=== PATIENT | male | born 1950 | race Caucasian/White ===

== ENCOUNTER 2017-06-28 03:44 | Emergency (ER) | payer BC, MEDICARE ==
[~2017-06-28] VITALS: Ht 167.6 cm; Wt 76.5 kg
[2017-06-28 03:48] VITALS: Ht 167.6 cm; Wt 76.5 kg
[2017-06-28] MEDS ORDERED: SOD CHLORIDE 0.9% 1,000 ML IV STA (03:59)
[2017-06-28] MEDS ORDERED: ONDANSETRON 4 MG INJ IV STA (03:59)
[2017-06-28] MEDS ORDERED: morphine 4 MG/ML VIAL IV STA (03:59)
[2017-06-28 04:46] LABS: BASOPHILS % 0.3 % (0.0-2.0); EOSINOPHILS # 0.2 10^3/ul (0.0-0.5); HEMATOCRIT 44.1 % (42.0-52.0); LYMPHOCYTES # 1.8 10^3/ul (0.8-2.9); LYMPHOCYTES % 18.4 % (15.0-51.0); MEAN CORPUSCULAR HEMOGLOBIN 30.9 pg (29.0-33.0); MEAN CORPUSCULAR VOLUME 90.7 fl (82.0-101.0); MONOCYTE # 0.6 10^3/ul (0.3-0.9); MONOCYTES % 5.7 % (0.0-11.0); NEUTROPHIL # 7.2 10^3/ul (1.6-7.5); NEUTROPHILS % 73.3 % (39.0-77.0); PLATELET COUNT 259 10^3/UL (140-415); RED BLOOD COUNT 4.86 10^6/ul (4.70-6.10); RED CELL DISTRIBUTION WIDTH 13.2 % (11.5-14.5); WHITE BLOOD COUNT 9.8 10^3/ul (4.8-10.8)
[2017-06-28 04:53] LABS: UR RBC > 182 /HPF (0-5)
[2017-06-28 04:56] LABS: ADD UMIC YES; UR ASCORBIC ACID NEGATIVE (NEGATIVE); UR BILIRUBIN (Dip) NEGATIVE (NEGATIVE); UR BLOOD (Dip) 3+ mg/dL (NEGATIVE); UR CLARITY CLOUDY (CLEAR); UR COLOR RED (YELLOW); UR GLUCOSE (Dip) NEGATIVE (NEGATIVE); UR KETONES (Dip) NEGATIVE (NEGATIVE); UR LEUKOCYTE ESTERASE (Dip) 2+ Leu/ul (NEGATIVE); UR NITRITE (Dip) NEGATIVE (NEGATIVE); UR SPECIFIC GRAVITY (Dip) 1.016 (1.003-1.030); UR TOTAL PROTEIN (Dip) 2+ mg/dl (NEGATIVE); UR UROBILINOGEN (Dip) NEGATIVE (NEGATIVE)
--- NOTE | 2017-06-28 05:07 | RADRPT ---
PROCEDURE: CT abdomen and pelvis without intravenous contrast. CLINICAL INDICATION: Pain. TECHNIQUE: CT of the abdomen/pelvis was performed utilizing axial images with reconstructions in s agittal and coronal planes. The administered radiation dose is CTDI 9.7 mGy, DLP 640 mGy-cm. One or more of the following dose reduction techniques were used: automated exposure control, adjustment of the mA and/or kV according to patient size and/or use of iterative reconstruction technique. COMPARISON: No pertinent prior examinations were submitted for comparison. FINDINGS: Visualized Chest: There is mild cardiomegaly. Some mild atelectasis is noted at the lung bases. Abdomen: The spleen, pancreas, gallbladder,and adrenal glands are unremarkable. A small hypoattenuating le rg is noted within the left hepatic dome, likely a cyst. The kidneys are without hydronephrosis. Punctate nonobstructive calculi are noted within both kidne ys. Small exophytic right renal cysts are noted. There is no evidence of bowel obstruction. The appendix is normal. No intra-abdominal free air is seen. There is no evidence of intra-abdominal adenopathy or free fluid. Vascular calcifications are noted within the aorta and its branches. Pelvis: Prior prostatectomy is noted. There is no evidence of pelvic adenopathy or free fluid. The urinary b ladder is unremarkable. Osseous structures: Unremarkable. IMPRESSION: No acute findings. Bilateral nephrolithiasis. RPTAT: HIKT .Howie Gardner MD, MD Date Time Electronically viewed and signed by .Howie Gardner MD, on 06/28/2017 05:06 .T/
[2017-06-28 05:08] LABS: ALBUMIN 4.4 g/dl (3.3-4.9); ALBUMIN/GLOBULIN RATIO 1.41; BILIRUBIN,INDIRECT 0.4 mg/dl (0-1.1); BILIRUBIN,TOTAL 0.4 mg/dl (0.2-1.3); CREATININE 0.79 mg/dl (0.61-1.24); POTASSIUM 4.3 mmol/L (3.5-5.1); TOTAL PROTEIN 7.5 g/dl (6.1-8.1)
--- NOTE | 2017-06-28 05:17 | ERD ---
ER Documentation Chief Complaint Date/Time DATE: 06/28/17 TIME: 05:15 Chief Complaint blood in urine and pain on urination x 2 days HPI This is a 58-year-old male with blood in urine and pain drainage for the past 2 days he first noticed the burning on urination 2 days ago is a slight burning at the end of his stream. Now white from the beginning of the stream to the end of his stream. Starts with blood and 2. No fevers no chills. No flank pain. No nausea no vomiting. No other current complaints. ROS All systems reviewed and are negative except as per history of present illness. Allergies Allergies: Coded Allergies: No Known Allergy (Unverified , 06/28/17) PMhx/Soc Medical and Surgical Hx: pt denies Medical Hx, pt denies Surgical Hx Hx Cardiac Disorders: Yes (htn, uncontrolled, no meds) Hx Alcohol Use: No Hx Substance Use: No Hx Tobacco Use: No Smoking Status: Never smoker Physical Exam Vitals Vital Signs Date Time Temp Pulse Resp B/P Pulse Ox O2 Delivery O2 Flow Rate FiO2 06/28/17 04:19 98.5 85 20 151/82 97 Room Air 06/28/17 03:48 97.8 65 20 186/83 97 Physical Exam Const: [] Head: Atraumatic Eyes: Normal Conjunctiva ENT: Normal External Ears, Nose and Mouth. Neck: Full range of motion..~ No meningismus. Resp: Clear to auscultation bilaterally Cardio: Regular rate and rhythm, no murmurs Abd: Soft, non tender, non distended. Normal bowel sounds Skin: No petechiae or rashes Back: No midline or flank tenderness Ext: No cyanosis, or edema Neur: Awake and alert Psych: Normal Mood and Affect Result Diagram: 06/28/1740606/28/17406 Results 24 hrs Laboratory Tests Test 06/28/17 04:07 White Blood Count 9.810^3/ul Red Blood Count 4.8610^6/ul Hemoglobin 15.0g/dl Hematocrit 44.1% Mean Corpuscular Volume 90.7fl Mean Corpuscular Hemoglobin 30.9pg Mean Corpuscular Hemoglobin Concent 34.0g/dl Red Cell Distribution Width 13.2% Platelet Count 15187^3/UL Mean Platelet Volume 10.0fl Neutrophils % 73.3% Lymphocytes % 18.4% Monocytes % 5.7% Eosinophils % 2.0% Basophils % 0.3% Nucleated Red Blood Cells % 0.0/100WBC Neutrophils # 7.210^3/ul Lymphocytes # 1.810^3/ul Monocytes # 0.610^3/ul Eosinophils # 0.210^3/ul Basophils # 0.010^3/ul Nucleated Red Blood Cells # 0.010^3/ul Urine Color RED Urine Clarity CLOUDY Urine pH 6.0 Urine Specific [place] 1.016 Urine Ketones NEGATIVEmg/dL Urine Nitrite NEGATIVEmg/dL Urine Bilirubin NEGATIVEmg/dL Urine Urobilinogen NEGATIVEmg/dL Urine Leukocyte Esterase 2+Eric/ul Urine Microscopic RBC > 182/HPF Urine Microscopic WBC > 182/HPF Urine Hemoglobin 3+mg/dL Urine Glucose NEGATIVEmg/dL Urine Total Protein 2+mg/dl Sodium Level 141mmol/L Potassium Level 4.3mmol/L Chloride Level 107mmol/L Carbon Dioxide Level 26mmol/L Anion Gap 12 Blood Urea Nitrogen 14mg/dl Creatinine 0.79mg/dl Glucose Level 111mg/dl Calcium Level 9.0mg/dl Total Bilirubin 0.4mg/dl Direct Bilirubin 0.00mg/dl Indirect Bilirubin 0.4mg/dl Aspartate Amino Transf (AST/SGOT) 35IU/L Alanine Aminotransferase (ALT/SGPT) 36IU/L Alkaline Phosphatase 83IU/L Total Protein 7.5g/dl Albumin 4.4g/dl Globulin 3.10g/dl Albumin/Globulin Ratio 1.41 Lipase 205U/L Current Medications Medications (Trade) Dose Ordered Sig/Ree Route PRN Reason Start Time Stop Time Status Last Admin Dose Admin Sodium Chloride (NS) 1,000 ml @ 1,000 mls/hr Q1H STAT IV 06/28/17 03:59 06/28/17 04:58 DC 06/28/17 04:24 Morphine Sulfate (morphine) 4 mg ONCE STAT IV 06/28/17 03:59 06/28/17 04:16 DC 06/28/17 04:24 Ondansetron HCl (Zofran Inj) 4 mg ONCE STAT IV 06/28/17 03:59 06/28/17 04:16 DC 06/28/17 04:25 Procedures/MDM Medical decision-making: This is a 58-year-old male with looks to be infection of his urinary tract. Patient given a dose of Rocephin here. Patient be discharged home with Cipro for 14 days. Follow-up in 8 hours for serial abdominal exams. Pending urine culture results. Departure Diagnosis: Primary Impression: UTI (urinary tract infection) Urinary tract infection type: acute cystitis Hematuria presence: without hematuria Qualified Code: N30.00 - Acute cystitis without hematuria Condition: Stable DEMETRIA MIRANDA Jun 28, 2017 05:17
[2017-06-28] MEDS ORDERED: CEFTRIAXONE 1 GM/50 ML (PMX) 50 ML IVPB ONE (05:30)
[2017-06-28] MEDS ORDERED: CIPR500T4 PO (05:41)
[2017-06-28] MEDS ORDERED: SIMV40TA2 PO (05:55)
[2017-06-28 06:14] VITALS: BP 142/81; PULSE 86; RESP 19; TEMP 98.5
== END 2017-06-28 06:15 | disposition home or self-care (01) ==
LOC: E/R 03:44
DX: N30.00 Acute cystitis without hematuria (principal); I10 Essential (primary) hypertension
CPT/HCPCS: 36415; 74176; 80053; 81001; 83690; 85025; 96374; 96375; 99285; J0696; J2270; J2405; J7030